=== PATIENT | male | born 1935 | race Two or more races ===

== ENCOUNTER 2023-02-02 14:45 | Emergency (ER) | payer OTHER ==
[~2023-02-02] VITALS: Ht 167.6 cm; Wt 52.6 kg
[2023-02-02] VITALS (9 sets, daily range): BP systolic 145–172; BP diastolic 43–73; PULSE 47–63; RESP 12–20; TEMP 97.6–98.8; O2SAT 98–99
[2023-02-02 15:30] LABS: Basophils # (auto) 0.1 10 ^3/uL (0-0.2); Eosinophils # (auto) 0.2 10 ^3/uL (0-0.8); Hematocrit 20.4 % (41.0-53.0); Nucleated Red Blood Cells % 0.1 %; White Blood Cell 3.4 10^3/uL (4.4-10.8)
[2023-02-02 15:32] LABS: Basophils % (auto) 1.8 % (0.0-2.0); Eosinophils % (auto) 4.9 % (0.0-7.0); Lymphocytes # (auto) 1.3 10 ^3/uL (0.4-5.4); Lymphocytes % (auto) 39.3 % (10.0-50.0); Mean Corpuscular Hemoglobin 34.5 pg (28.0-32.0); Mean Corpuscular Hgb Conc. 34.1 g/dL (32.0-36.0); Mean Corpuscular Volume 101.1 fL (80.0-100.0); Monocytes # (auto) 0.5 10 ^3/uL (0-1.3); Neutrophils # (auto) 1.3 10 ^3/uL (1.6-8.6); Red Blood Cells 2.02 10^6/uL (4.5-5.90); Red Cell Distribution Width 17.4 % (11.8-14.3)
[2023-02-02 15:39] LABS: Alanine Aminotransferase 12 U/L (7-40); Alkaline Phosphatase 78 U/L (46-116); Anion Gap 8 (5-15); Aspartate Aminotransferase 9 U/L (13-40); Blood Urea Nitrogen 33 mg/dL (9-23); Carbon Dioxide 24 mmol/L (20-30); Chloride 108 mmol/L (98-107); Glucose 130 mg/dL (74-106); Potassium 4.5 mmol/L (3.5-5.1); Sodium 140 mmol/L (136-145)
[2023-02-02 15:40] LABS: Bilirubin, Total 0.4 mg/dL (0.2-1.0); Total Protein 7.1 g/dL (5.7-8.2)
[2023-02-02 16:08] LABS: INR 1.02 (0.9-1.15); Partial Thromboplastin Time 30.2 SEC (24.5-34.5); Prothrombin Time 10.7 sec (9.3-11.8)
[2023-02-02 16:22] LABS: Anisocytosis Slight; Macrocytosis Slight; Platelet Estimate Decreased
== END 2023-02-02 22:12 | disposition home or self-care (01) ==
LOC: ER 14:45
DX: D64.9 Anemia, unspecified (principal); I12.9 Hypertensive chronic kidney disease with stage 1 through stage 4 chronic kidney disease, or unspecified chronic kidney disease; E11.22 Type 2 diabetes mellitus with diabetic chronic kidney disease; N18.9 Chronic kidney disease, unspecified; Z85.9 Personal history of malignant neoplasm, unspecified; Z98.890 Other specified postprocedural states; Z87.891 Personal history of nicotine dependence
CPT/HCPCS: 36415; 36430; 80053; 85025; 85610; 85730; 86850; 86900; 86901; 86920; 93005; 99285; J7040; P9016

== ENCOUNTER 2023-02-25 13:35 | Emergency (ER) | payer OTHER ==
[~2023-02-25] VITALS: Ht 160 cm; Wt 51.4 kg
[2023-02-25 14:30] LABS: Basophils # (auto) 0 10 ^3/uL (0-0.2); Eosinophils # (auto) 0.1 10 ^3/uL (0-0.8); Lymphocytes # (auto) 1.3 10 ^3/uL (0.4-5.4); Neutrophils # (auto) 1.9 10 ^3/uL (1.6-8.6); Red Cell Distribution Width 17.4 % (11.8-14.3); White Blood Cell 3.8 10^3/uL (4.4-10.8)
[2023-02-25 14:32] LABS: Basophils % (auto) 1.1 % (0.0-2.0); Eosinophils % (auto) 2.6 % (0.0-7.0); Hematocrit 21.2 % (41.0-53.0); Lymphocytes % (auto) 33.4 % (10.0-50.0); Mean Corpuscular Hemoglobin 34.3 pg (28.0-32.0); Mean Corpuscular Hgb Conc. 33.2 g/dL (32.0-36.0); Mean Corpuscular Volume 103.4 fL (80.0-100.0); Monocytes # (auto) 0.5 10 ^3/uL (0-1.3); Neutrophils % (auto) 50.9 % (37.0-80.0); Nucleated Red Blood Cells % 0.2 %; Red Blood Cells 2.05 10^6/uL (4.5-5.90)
[2023-02-25 14:45] LABS: INR 1.01 (0.9-1.15); Prothrombin Time 10.6 sec (9.3-11.8)
[2023-02-25 14:56] LABS: Alanine Aminotransferase 12 U/L (7-40); Albumin 4.1 g/dL (3.2-4.8); Alkaline Phosphatase 90 U/L (46-116); Anion Gap 9 (5-15); Aspartate Aminotransferase 12 U/L (13-40); BUN/Creatinine Ratio 16.1 (10.0-20.0); Bilirubin, Total 0.4 mg/dL (0.2-1.0); Blood Urea Nitrogen 45 mg/dL (9-23); Calcium 8.5 mg/dL (8.5-10.1); Carbon Dioxide 23 mmol/L (20-30); Chloride 110 mmol/L (98-107); Glucose 161 mg/dL (74-106); Potassium 3.9 mmol/L (3.5-5.1); Sodium 142 mmol/L (136-145)
[2023-02-25 14:57] LABS: Total Protein 7.2 g/dL (5.7-8.2)
[2023-02-25] MEDS ORDERED: SODIUM CHLORIDE 0.9% 1,000 ML IV ONE (16:45)
[2023-02-25 17:00] VITALS: PULSE 50; RESP 16; O2SAT 95
[2023-02-25] MEDS ORDERED: SODIUM CHLORIDE 0.9% 500 ML IV ONE (17:00)
[2023-02-25] MEDS ORDERED: ACETAMINOPHEN 500 MG TAB PO PRN (17:15)
[2023-02-25 19:53] VITALS: PULSE 57; RESP 13; O2SAT 100
[2023-02-25 22:10] VITALS: BP 151/52; PULSE 54; RESP 17; TEMP 98.4
[2023-02-25 22:33] VITALS: BP 151/54; PULSE 54; RESP 13; TEMP 98.5
[2023-02-25 23:00] VITALS: BP 141/54; PULSE 52; RESP 14; TEMP 97.9
[2023-02-25 23:31] VITALS: BP 149/54; PULSE 53; RESP 14; TEMP 98
[2023-02-26] VITALS: BP 158/59; PULSE 54; RESP 14; TEMP 97.9
[2023-02-26 00:30] VITALS: BP 154/54; PULSE 48; RESP 16; TEMP 97.9
[2023-02-26 01:01] VITALS: BP 153/55; PULSE 50; RESP 12; TEMP 97.8
[2023-02-26 01:13] VITALS: BP 156/45; PULSE 59; RESP 14; TEMP 97.9
[2023-02-26 02:42] VITALS: BP 155/53; PULSE 44; RESP 16; O2SAT 100
== END 2023-02-26 02:52 | disposition home or self-care (01) ==
LOC: ER 13:35
DX: D64.9 Anemia, unspecified (principal); R94.31 Abnormal electrocardiogram [ECG] [EKG]; I12.9 Hypertensive chronic kidney disease with stage 1 through stage 4 chronic kidney disease, or unspecified chronic kidney disease; E11.22 Type 2 diabetes mellitus with diabetic chronic kidney disease; N18.9 Chronic kidney disease, unspecified; Z98.890 Other specified postprocedural states
CPT/HCPCS: 36415; 36430; 74176; 80053; 82270; 84484; 85025; 85610; 85730; 86850; 86900; 86901; 86920; 93005; 96360; 99291; J7040; P9016